=== PATIENT | male | born 1935 | race Caucasian/White ===

== ENCOUNTER → 2017-07-12 | Outpatient (CLI) | payer OTHER ==
[~2017-07-12] VITALS: Ht 177.8 cm; Wt 93.0 kg
[~2017-07-12] MED LIST: ALPHA LIPOIC A600 M1 PO; ANDRODERM1 EAC3 TOP; ANDROGEL; ANDROGEL5 GM TD; ASPIRIN EC81 M1 PO; ASPIRIN81 M2 PO; ATENOLOL 50 MG50 M1 PO; ATORVASTATIN CA40 MG PO; CENTRUM SILVER1 EAC4 PO; CRESTOR10 MG PO; FELODIPINE ER10 MG PO; FENOFIBRATE67 MG PO; FOLIC ACID 40400 MC1 PO; HYDROCODONE-AP1 EA11 PO; IBUPROFEN 200200 M1 PO; IBUPROFEN IB200 MG PO; LAVITRA PO; LEVITRA20 MG PO; MEDROLDOSEPACK PO; NEXIUM40 MG PO; NITROSTAT0.4 M1 PO; NORCO 10-325 T1 EACH PO; OMEGA-31000 M1 PO; OSTEO BI-FLEX1 EAC1 PO; OSTEO BI-FLEX1 EACH PO; OXYBUTYNIN 5 MG5 M2 PO; PLAVIX 75 MG TA75 M1 PO; PROSCAR 5MG TABL5 MG PO; TOPROL XL25 MG PO; TYLENOL EXTRA500 MG PO; VITA PULSE PO; VITAMINC500 PO; WELCHOL 625 MG625 MG PO
--- NOTE | ~2017-07-12 | HPC ---
[facility] [address] [address] PAIN MANAGEMENT CONSULTATION Name: NELL JAIN Room #: REG [facility] GerryAlmaCristina.#: [id number] Admission: 07/12/17 Attend Phys: Ghulam Maynard MD Discharge: Date of : 35 Report #: [id number] THIS REPORT FOR: //name// CC: Ghulam Anderson MD DATE OF SERVICE: 07/12/2017 FOLLOWUP COMPLAINT: Here for pain in the left side, which is severe. FOLLOWUP HISTORY: The patient is an 82-year-old gentleman who has been seen in the pain clinic in the past. He suffered from lumbar radicular pain and underwent a series of epidural steroid injections. He found benefit from these. He returns today indicating that he is having pain and discomfort in his left side. He notes that the pain is below the right rib area. Certain movements can exacerbate the pain and discomfort. He rates it as a 6-8 with activity. It can be quite problematic in the morning. He has seen a surgeon. They have looked at it and have not found any overt hernia. Notes that the pain can be exacerbated with movement, coughing and is tender to touch, hurts him at night. Denies any trauma to this area. PHYSICAL EXAMINATION: Blood pressure 144/81, pulse 64, respiratory rate 16, room air saturation 97%. Height 5 feet 10 inches, weight 205 pounds, BMI is 29. The patient has pain and discomfort in the left lower quadrant area. Standing, patient has some pain and discomfort with certain movements. Denies any pain radiating down into his leg. Denies any bowel or bladder dysfunction regarding this pain. He did have some bleeding episode and has been taken off his anticoagulant medications. There is no tenderness in the right or left paraspinal area near the kidneys. No significant out-pocketing or defect is noted in the left lower quadrant area. The patient does have a perception that there is some swelling in this area, but I do not see a whole lot of difference in the left versus the right. While sitting the patient has some pain and discomfort in the left lower quadrant area with certain movements bending rotation. With the patient lying in the right lateral decubitus position, palpation in the area of the 9th, 10th, and 11th rib is somewhat sore. Palpation in the anterior portion of the rib cage near the placement of attachment of the diaphragm is sore to touch. Palpation and push in this area does reproduce a component of the patient's pain. No out-pocketing consistent with hernias noted. The patient feels that there is a slight lump in this area. I cannot perceive anything that is abnormal. IMPRESSION: 1. Left lower quadrant pain with reproduction of the pain in the lateral wall of the ribcage with soreness, tenderness and total reproduction of pain with pressure. [facility] [address] [place] [address] PAIN MANAGEMENT CONSULTATION Name: JAINNELLPANKAJ QUEEN Room #: REG [facility] Sterling#: [id number] Admission: 07/12/17 Attend Phys: Ghulam Maynard MD Discharge: Date of : 35 Report #: [id number] 2. History of cervical radiculopathy, stable at this juncture. 3. Hematuria in the past. The patient has been taken off nonsteroidal anti-inflammatory medications. PAST MEDICAL HISTORY: Heart disease, status post 5 bypass grafts in 2009, history of shingles in the past. The patient denies any shingle like symptoms with this history. 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 RECOMMENDATIONS: We discussed treatment options with the patient. It appears that he has pain, which is consistent with costochondritis. We have given him the option of an injection. We explained the possible complications, which could include a pneumothorax. The patient was given the option for a Medrol Dosepak and a more conservative approach. He would like to try the more conservative approach at this juncture. Medrol Dosepak has been issued. He will follow up in the near future. We would like to thank you for letting us participate in his care. We hope he continues to improve. <ELECTRONICALLY SIGNED> By: Ghulam Maynard MD 07/18/17 0945 [id number] Ghulam Maynard MD /DREW
[2017-07-12 13:06] VITALS: BP 144/81
== END ==
LOC: PAIN 07:02
DX: M54.5 Low back pain (principal); M79.605 Pain in left leg

== ENCOUNTER → 2017-07-31 | Outpatient (CLI) | payer OTHER ==
[~2017-07-31] VITALS: Ht 177.8 cm; Wt 93.8 kg
[~2017-07-31] MED LIST changes: +HYDROCODON-ACE1 EAC8 PO; +NEURONTIN 300300 M1 PO; +TRAMADOL 50 MG50 MG PO; +VOLTAREN GEL 1100 G1 TOP
--- NOTE | ~2017-07-31 | OD ---
[facility] [place] [address] DELIVERY NOTE Name: SUSYNELL BERNICE Room #: REG BETH Gaetano.#: [id number] Admission: 07/31/17 Attend Phys: Ghulam Maynard MD Discharge: Date of : 35 Report #: [id number] THIS REPORT FOR: //name// CC: Ghulam Anderson MD DATE OF SERVICE: 07/31/2017 FOLLOWUP COMPLAINT: The pain is somewhat better, but still pretty bad. It is really sensitive over the left side. FOLLOWUP HISTORY: The patient is an 82-year-old gentleman who has been followed in the pain clinic in the past because of lumbar radiculopathy. About 4 weeks, he has noted pain and discomfort in the left lower quadrant. There is an area underneath his ribcage. He denies having seen any rash or experiencing any outbreak. Denies any trauma to this area. He denies any significant coughing episodes. He feels that there might be a slight out pocketing of the abdominal wall in this area. ALLERGIES: No known drug allergies. MEDICATIONS: The patient recently took a Medrol Dosepak, which he completed; tramadol 50 mg q.6 hours p.r.n., nitroglycerin 0.4 mg p.r.n., Levitra 20 mg p.r.n., Tylenol Extra Strength p.r.n., Alpha-lipoic acid 600 mg capsules, Osteo Bi-Flex, Bijal Plus 1 tablet daily, Proscar 5 mg, Nexium 40 mg, testosterone 1 patch, vitamin C, Oxybutynin 5 mg, Lipitor 40 mg, metoprolol XL 25 mg, folic acid 400 mcg, and aspirin 81 mg. PHYSICAL EXAMINATION: VITAL SIGNS: Blood pressure 126/69, pulse 74, respiratory rate 16, room air saturation 97%. Height 5 feet 10 inches, weight 206 pounds. BMI is 29. HEENT: Unremarkable. CHEST: Clear to auscultation. HEART: Regular rate. ABDOMEN: The patient has some tenderness in the left lower quadrant below the costal margin of T7, T8, and T9. Palpation in this area can elicit a significant component of the patient's pain. No obvious out pocketing of the abdominal muscles are noted, but the patient lying flat and doing a seated position there is tensing of the muscles on the right abdominal wall area, but no obvious out pocketing. The patient feels from his perception that there is a bulging in this area as compared to the contralateral side. No evidence of rash or skin lesions are noted. IMPRESSION: Hypertension, cardiac disease, low testosterone, hyperlipidemia, and history of lumbar radiculopathy in the past. [facility] [address] [place] [address] DELIVERY NOTE Name: NELL JAIN Room #: REG BETH Katz#: [id number] Admission: 07/31/17 Attend Phys: Ghulam Maynard MD Discharge: Date of : 35 Report #: [id number] RECOMMENDATIONS: We have discussed the possible options. One is to inject the area with local anesthetic and steroid. It appears that the pain is not inconsistent with costochondritis. We will have the patient undergo sonography to see whether or not there is a pathology, which we cannot see. He will be given another Medrol Dosepak to take in the interim. He found that the initial Dosepak was helpful. We will provide him with a tube of Voltaren cream to apply to the affected area 4 times per day. We will also renew the patient's tramadol. We may consider use of a medication like Elavil or a course of Neurontin. We would like to thank you for letting us to participate in his care. We hope he continues to improve. <ELECTRONICALLY SIGNED> By: Ghulam Maynard MD 08/07/17 0837 [id number] 0002 Ghulam Maynard MD /[facility]
[2017-07-31 09:28] VITALS: BP 126/69
== END ==
LOC: PAIN 06:56
DX: M54.16 Radiculopathy, lumbar region (principal); I10 Essential (primary) hypertension; E78.5 Hyperlipidemia, unspecified; I51.89 Other ill-defined heart diseases

== ENCOUNTER → 2018-01-31 | Outpatient (CLI) | payer OTHER ==
[~2018-01-31] VITALS: Ht 177.8 cm; Wt 95.3 kg
--- NOTE | ~2018-01-31 | HPC ---
[facility] [address] [address] PAIN MANAGEMENT CONSULTATION Name: JAINNELL Room #: REG BETH GarrettAlmaCristinaAlma#: [id number] Admission: 01/31/18 Attend Phys: Ghulam Maynard MD Discharge: Date of : 35 Report #: [id number] THIS REPORT FOR: //name// CC: Ghulam Anderson DATE OF SERVICE: 01/31/2018 FOLLOWUP COMPLAINT: Continued abdominal pain along the lower rib cage left and the right side. He has also had some pain in back. FOLLOWUP HISTORY: The patient is an 82-year-old gentleman who has been followed in the Pain Clinic. He continues to have chronic pain involving his abdominal area. He had some pressure sensations in the abdominal area. He feels that this might be similar to what one would have with hernia, but he has not been found to have a hernia from previous examinations. The possibility of gallbladder disease has been entertained. He is going to be evaluated for that. He has some pain and discomfort in the back area, sometimes in the right flank. He notes that there is some improvement in his pain by use of hydrocodone. He generally takes one tablet b.i.d., whenever necessary. He does have some problems with sleeping. He is not taking gabapentin. He thinks he may have tried it, but he is not sure. Does not note any untoward complication from its use. He feels that he has been found to have hiatal hernia with a Schatzki ring. ALLERGIES: No known drug allergies. MEDICATIONS: Nitroglycerin 0.4 mg sublingual p.r.n., Levitra 20 mg p.r.n., Tylenol Extra Strength 500 mg q. 6 hours p.r.n., alpha lipoic acid 600 mg capsules, Osteo Bi-Flex capsules, VitaPulse 1 tablet daily, Proscar 5 mg daily, Nexium 20 mg daily, pantoprazole 40 mg, testosterone patch daily, ascorbic acid, oxybutynin 5 mg, Lipitor 40 mg, metoprolol XL 25 mg, folic acid 400 mcg and aspirin 81 mg. PHYSICAL EXAMINATION: GENERAL: The patient is a well-developed white male, appears stated age. He is alert and oriented x 3. Speech is fluent. Extraocular muscles intact. The patient wears glasses. Hearing is within normal limits. Mucous membranes are moist. NECK: Without adenopathy or bruits. HEART: S1, S2. LUNGS: Clear to auscultation without rales or rhonchi. ABDOMEN: Slightly protuberant. The patient notes some hypersensitivity to the right lower quadrant area below his rib. He feels that there is hypersensitivity in this area. Use of Voltaren in this area has been somewhat beneficial. Notes some pain and discomfort in the right lower quadrant near his [facility] [address] [place] [address] PAIN MANAGEMENT CONSULTATION Name: NELL JAIN Room #: REG BETH Katz#: [id number] Admission: 01/31/18 Attend Phys: Ghulam Maynard MD Discharge: Date of : 35 Report #: [id number] kidney in the past. This is not always there. Notes some continued pain and discomfort in the lower abdominal area. This is somewhat chronic. It improves with use of hydrocodone. Denies any problems with bowel or bladder movements. Palpation in the 10th and 11th rib area are slightly hypersensitive on the right as compared to the left. No hepatosplenomegaly was appreciated, right lower quadrant rebound, tenderness is slight. IMPRESSION: 1. Continued abdominal pain improves with use of hydrocodone. 2. Coronary artery disease, status post coronary artery bypass graft in 2009. 3. History of shingles in the past. 4. Schatzki ring with hiatal hernia. RECOMMENDATIONS: We discussed treatment options with the patient. 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 He will continue with his current medications. The patient has been given a script for gabapentin. He will take 300 mg b.i.d. and noticed efficacy. He will continue to use Voltaren gel to the affected area. He finds this helpful. We will increase his Norvasc from 7.5 mg p.o. b.i.d. to t.i.d. The patient will call us if he has any concerns. We would like to thank you for letting us participate in his care. We hope he continues to improve. By: [id number] Ghulam Maynard MD /nt
[2018-01-31 08:15] VITALS: BP 152/76
== END ==
LOC: PAIN 06:49
DX: I25.10 Atherosclerotic heart disease of native coronary artery without angina pectoris (principal); K22.2 Esophageal obstruction; K44.9 Diaphragmatic hernia without obstruction or gangrene; R10.9 Unspecified abdominal pain; G89.29 Other chronic pain

== ENCOUNTER → 2018-03-12 | Outpatient (CLI) | payer OTHER ==
[~2018-03-12] VITALS: Ht 177.8 cm; Wt 94.3 kg
[2018-03-12 15:23] VITALS: BP 138/70
== END ==
LOC: PAIN 06:51
DX: R10.12 Left upper quadrant pain (principal); Z79.899 Other long term (current) drug therapy

== ENCOUNTER → 2020-02-12 | Outpatient (CLI) | payer OTHER ==
[~2020-02-12] VITALS: Ht 177.8 cm; Wt 94.0 kg
[~2020-02-12] MED LIST changes: +AMOXICILLIN 50500 MG PO; +B12 ACTIVE1000 MCG PO; +CARVEDILOL25 MG PO; +CLOPIDOGREL75 MG PO; +COZAAR 25 MG TA25 M1 PO; +HYDROCHLOROTHIA25 M2 PO; +METFORMIN HCL500 M3 PO; +MIRALAX119 GM PO; +SILDENAFIL20 MG PO; +VITAMIN D3 COM1 EACH PO
[2020-02-12 14:25] VITALS: BP 122/70
--- NOTE | 2020-02-12 14:37 | NUR ---
Pain Clinic Assessment: 1. History of Osteoarthritis: NO History of Rheumatoid Arthritis: NO 2. Height: 5 ft. 10 in. 177.8 cm. Weight: 207.2 lb. oz. 93.985 kg. Patient's BMI: 29.7 3. Vital Signs: BP: 122/70 Pulse: 79 Resp: 20 Temp: 02 Sat: 96 ECG Mon: 4. Pain Intensity: 2-3 UP TO 9 AT WORST 5. Fall Risk: Dizziness: N Needs help standing or walking: N Fallen in the last 3 months: N Fall risk comments: 6. Patient on Blood Thinner: None 7. History of Hypertension: Y 8. Opioid Therapy greater than 6 weeks: Y Opiate Contract Signed: 9. Risk Assessment Tool Provided: LOW RISK -O 10. Functional Assessment Tool: 11. Recreational Drug Use: Never Drug Type: Tobacco Use: Never Smoker Tobacco Type: Amount or Packs/day: How Many Years: Alcohol Use: No Frequency: Quant:
--- NOTE | 2020-02-29 20:39 | HPC ---
[facility] [address] [place] [address] PAIN MANAGEMENT CONSULTATION Name: NELL JAIN Room #: REG [facility] Gaetano.#: [id number] Admission: 02/12/20 Attend Phys: Ghulam Maynard MD Discharge: Date of : 35 Report #: [id number] THIS REPORT FOR: cc: Mango Anderson MD, Stanley P. MD Brown, N. Wayne MD ~ CC: Ghulam Anderson DATE OF SERVICE: 02/12/2020 PRIMARY CARE PHYSICIAN: Mango Anderson MD CHIEF COMPLAINT: Neck pain. HISTORY OF PRESENT ILLNESS: The patient is an 85-year-old gentleman who has returned to the pain clinic for evaluation. He states that he is having some neck pain. He rates it as a 2-3 today. Oftentimes, it is severe. He has used hydrocodone and found this medication beneficial. He would like to continue with its use. He has pain in the back as well as the side of his neck. Noticed that it can rise to the level of 9/10. Movement and activity can exacerbate the discomfort. Has noted some improvement with use of Voltaren as well as hot showers. The patient has undergone cardiac surgery since we saw him last. ALLERGIES: No known drug allergies. CURRENT MEDICATIONS: Voltaren gel 2% 4 times daily to the upper extremity, hydrocodone 7.5 mg 1 p.o. t.i.d., nitroglycerin 0.4 mg, Levitra 20 mg, Tylenol Extra Strength 500 mg, Alpha-lipoic acid 600 mg, Osteo Bi-Flex, VitaPulse one tab daily, Proscar 5 mg, Nexium 40 mg, testosterone patch, vitamin C 500 mg, oxybutynin 5 mg, Lipitor 40 mg, metoprolol XL 25 mg, folic acid 400 mcg 4 times a week, and aspirin 81 mg. PAIN CLINIC ASSESSMENT AND PQRS: 1. Osteoarthritis. The patient has some osteoarthritic changes in his neck. He is not being treated for rheumatoid arthritis. 2. Height 5 feet 10 inch, weight 207 pounds, BMI is 29.7. 3. Vital signs: Blood pressure 122/70, pulse 79, respiratory rate 20, room air saturation 96%. 4. Pain intensity 2 to 3 up to 9 at its worst. 5. Fall history: The patient has not fallen in the last 3 months. 6. Blood thinner. The patient is not on a blood thinning medication. 7. Hypertension. The patient is being treated for hypertension. 8. Opioids greater than 6 weeks. The patient receives medications from his primary physician. 9. Risk assessment tool, [place] [address] PAIN MANAGEMENT CONSULTATION Name: NELL JAIN Room #: REG CL[facility] Katz#: [id number] Admission: 02/12/20 Attend Phys: Ghulam Maynard MD Discharge: Date of : 35 Report #: [id number] 10. Functional assessment tool, . 11. Recreational drug use. The patient denies. 12. Tobacco: The patient denies. 13. Alcohol. The patient denies use of alcoholic beverages. PHYSICAL EXAMINATION: GENERAL: The patient is a well-developed, well-nourished white male. Appears his stated age. He is alert and oriented x 3. His affect is appropriate. Speech is fluent. HEENT: Normocephalic, atraumatic. Extraocular eye muscles intact. Sclerae nonicteric. Mucous membranes are moist. The patient is wearing glasses. The patient has a mask in place. NECK: The patient notes some increased pain and discomfort with some decreased range of motion with flexion, extension, left and right lateral rotation. HEART: Regular rate. ABDOMEN: Nontender. EXTREMITIES: Upper extremity muscle strength judged to be 4+/5 for the major muscle groups in the upper extremity. MUSCULOSKELETAL: Low back area the patient without significant scoliosis, kyphosis or lordosis. Lower extremity muscle strength judged to be 5-/5 for the major muscle groups in the upper extremity. IMPRESSION: 1. Neck pain increasing with range of motion. 2. History of aortic valve replacement. 3. History of 5-vessel bypass and stent. 4. History of pacemaker. RECOMMENDATIONS: We discussed treatment options with the patient. At this juncture, we will continue with the hydrocodone. The patient finds that this medication has been efficacious. He is taking it as prescribed. He is having no complications from its use. A script for hydrocodone 7.5 mg 1 p.o. t.i.d. has been provided for immediate release 4 weeks and 8 weeks. He will call us if he has any concerns. We would like to thank you for letting us participate in his care. We hope he continues to improve. <ELECTRONICALLY SIGNED> By: Ghulam Maynard MD 02/29/20 2039 [id number] 06 Ghulam Maynard MD /DREW
== END ==
LOC: PAIN 06:54
PROVIDERS: ATTEND Anesthesiology Pain Medicine
DX: M54.2 Cervicalgia (principal); I10 Essential (primary) hypertension; Z95.2 Presence of prosthetic heart valve; Z79.891 Long term (current) use of opiate analgesic

== ENCOUNTER → 2020-11-18 | Outpatient (CLI) | payer OTHER ==
[~2020-11-18] VITALS: Ht 177.8 cm; Wt 89.2 kg
[2020-11-18 08:46] VITALS: BP 111/71
--- NOTE | 2020-11-18 09:00 | NUR ---
Pain Clinic Assessment: 1. History of Osteoarthritis: NO History of Rheumatoid Arthritis: NO 2. Height: 5 ft. 10 in. 177.8 cm. Weight: 196.6 lb. oz. 89.177 kg. Patient's BMI: 28.2 3. Vital Signs: BP: 111/71 Pulse: 77 Resp: 16 Temp: 02 Sat: 98 ECG Mon: 4. Pain Intensity: 3TO4 UP TO 9 AT WORST 5. Fall Risk: Dizziness: Y Needs help standing or walking: N Fallen in the last 3 months: N Fall risk comments: 6. Patient on Blood Thinner: Y 7. History of Hypertension: Y 8. Opioid Therapy greater than 6 weeks: Y Opiate Contract Signed: 9. Risk Assessment Tool Provided: LOW RISK -O 10. Functional Assessment Tool: 11. Recreational Drug Use: Never Drug Type: Tobacco Use: Never Smoker Tobacco Type: Amount or Packs/day: How Many Years: Alcohol Use: No Frequency: Quant:
== END ==
LOC: PAIN 06:59
PROVIDERS: ATTEND Anesthesiology Pain Medicine
DX: G89.29 Other chronic pain (principal); M54.2 Cervicalgia; R22.1 Localized swelling, mass and lump, neck; M25.512 Pain in left shoulder; E04.9 Nontoxic goiter, unspecified; M79.89 Other specified soft tissue disorders; K22.2 Esophageal obstruction; K44.9 Diaphragmatic hernia without obstruction or gangrene; I25.10 Atherosclerotic heart disease of native coronary artery without angina pectoris; Z90.49 Acquired absence of other specified parts of digestive tract; Z95.1 Presence of aortocoronary bypass graft; Z79.82 Long term (current) use of aspirin; Z79.891 Long term (current) use of opiate analgesic; Z79.899 Other long term (current) drug therapy

== ENCOUNTER → 2020-12-09 | Outpatient (CLI) | payer OTHER ==
[~2020-12-09] VITALS: Ht 177.8 cm; Wt 88.6 kg
[2020-12-09 14:02] VITALS: BP 124/53
--- NOTE | 2020-12-09 14:16 | NUR ---
Pain Clinic Assessment: 1. History of Osteoarthritis: NO History of Rheumatoid Arthritis: NO 2. Height: 5 ft. 10 in. 177.8 cm. Weight: 195.4 lb. oz. 88.633 kg. Patient's BMI: 28.0 3. Vital Signs: BP: 124/53 Pulse: 69 Resp: 14 Temp: 02 Sat: 96 ECG Mon: 4. Pain Intensity: 8-9 5. Fall Risk: Dizziness: N Needs help standing or walking: N Fallen in the last 3 months: N Fall risk comments: 6. Patient on Blood Thinner: Clopidogrel Bisulf(Plavix 7. History of Hypertension: Y 8. Opioid Therapy greater than 6 weeks: Y Opiate Contract Signed: 9. Risk Assessment Tool Provided: LOW RISK -O 10. Functional Assessment Tool: 11. Recreational Drug Use: Never Drug Type: Tobacco Use: Never Smoker Tobacco Type: Amount or Packs/day: How Many Years: Alcohol Use: No Frequency: Quant:
== END ==
LOC: PAIN 07:08
PROVIDERS: ATTEND Anesthesiology Pain Medicine
DX: M54.5 Low back pain (principal); M53.3 Sacrococcygeal disorders, not elsewhere classified; M25.48 Effusion, other site; G89.29 Other chronic pain; I25.10 Atherosclerotic heart disease of native coronary artery without angina pectoris; K44.9 Diaphragmatic hernia without obstruction or gangrene; K22.2 Esophageal obstruction

== ENCOUNTER → 2021-03-10 | Outpatient (CLI) | payer OTHER ==
[~2021-03-10] VITALS: Ht 177.8 cm; Wt 88.5 kg
[~2021-03-10] MED LIST changes: +NEURONTIN100 MG PO; +VOLTAREN ARTHRI20 GM TRANSDERM
[2021-03-10 13:22] VITALS: BP 133/63
--- NOTE | 2021-03-15 13:27 | NUR ---
Pain Clinic Assessment: 1. History of Osteoarthritis: NO History of Rheumatoid Arthritis: NO 2. Height: 5 ft. 10 in. 177.8 cm. Weight: 195.0 lb. oz. 88.452 kg. Patient's BMI: 28.0 3. Vital Signs: BP: 133/63 Pulse: 81 Resp: 16 Temp: 02 Sat: 95 ECG Mon: 4. Pain Intensity: 8 5. Fall Risk: Dizziness: N Needs help standing or walking: N Fallen in the last 3 months: N Fall risk comments: 6. Patient on Blood Thinner: Clopidogrel Bisulf(Plavix 7. History of Hypertension: Y 8. Opioid Therapy greater than 6 weeks: Y Opiate Contract Signed: 9. Risk Assessment Tool Provided: LOW RISK -O 10. Functional Assessment Tool: 11. Recreational Drug Use: Never Drug Type: Tobacco Use: Never Smoker Tobacco Type: Amount or Packs/day: How Many Years: Alcohol Use: No Frequency: Quant:
== END ==
LOC: PAIN 08:55
PROVIDERS: ATTEND Anesthesiology Pain Medicine
DX: G89.29 Other chronic pain (principal); I25.10 Atherosclerotic heart disease of native coronary artery without angina pectoris; Z95.1 Presence of aortocoronary bypass graft; K22.2 Esophageal obstruction; K44.9 Diaphragmatic hernia without obstruction or gangrene; Z79.899 Other long term (current) drug therapy; Z79.891 Long term (current) use of opiate analgesic